=== PATIENT | male | born 1940 | race Caucasian/White ===

== ENCOUNTER → 2017-06-25 | Outpatient (CLI) | payer MEDICARE ==
[~2017-06-25] MED LIST: Aspir 8181 MG PO; Baclofen10 MG PO; GLIM2 PO; GLIM4 PO; INSDET100 SC; LEVFLO500 PO; LISI20 PO; LORA10 PO; METF500 PO; MULVITMIND PO; PANT40 PO; PIOG45 PO; RIVA1.5 PO; RIVASTIGMINE1 EAC1 TD; SERT100 PO; Ultram50 MG PO; VITAMIN B122500 MCG PO; Voltaren100 GM TP; Zofran Odt4 MG SL; [UNRECOGNIZED DRUG - OTHER]
[2017-06-25 13:03] LABS: Bilirubin, Urine Neg (Neg); Blood, Urine Neg (Neg); Glucose Qualitative, Urine Neg (Neg); Ketones, Urine Neg (Neg); Leukocyte Esterase, Urine Neg (Neg); Nitrite, Urine Neg (Neg); Protein, Urine Neg (Neg); Specific Gravity, Urine 1.005 (1.003-1.022); Urobilinogen, Urine NORM (Normal)
[2017-06-25 13:11] LABS: Appearance, Urine Clear (Clear); Color, Urine Yellow (P-Yellow)
== END | disposition home or self-care (01) ==
LOC: LAB 12:10 → LAB SHORT 12:10
PROVIDERS: Family Medicine
DX: N39.0 Urinary tract infection, site not specified (principal)
CPT/HCPCS: 81003

== ENCOUNTER → 2017-07-20 | Outpatient (CLI) | payer MEDICARE ==
[2017-07-20 14:07] LABS: Appearance, Urine Clear (Clear); Bilirubin, Urine Neg (Neg); Blood, Urine Neg (Neg); Color, Urine Yellow (P-Yellow); Glucose Qualitative, Urine Neg (Neg); Ketones, Urine Neg (Neg); Leukocyte Esterase, Urine Neg (Neg); Nitrite, Urine Neg (Neg); Protein, Urine Neg (Neg); Urobilinogen, Urine NORM (Normal)
== END ==
LOC: LAB 13:39 → LAB SHORT 13:39
PROVIDERS: Family Medicine
DX: N39.0 Urinary tract infection, site not specified (principal)
CPT/HCPCS: 81003

== ENCOUNTER 2017-08-13 09:41 | Emergency (ER) | payer MEDICARE ==
[~2017-08-13] VITALS: Ht 175.3 cm; Wt 81.7 kg
[2017-08-13] MEDS ORDERED: FURO40 PO (10:06)
[2017-08-13] MEDS ORDERED: POTCHL10ER PO (10:08)
[2017-08-13] MEDS ORDERED: SUCR1 PO (10:08)
[2017-08-13] MEDS ORDERED: POLYETHYLENE G255 GM (10:08)
[2017-08-13] MEDS ORDERED: TAMS.4ER PO (10:09)
== END 2017-08-13 10:40 | disposition home or self-care (01) ==
LOC: ER 09:41
DX: S30.0XXA Contusion of lower back and pelvis, initial encounter (principal); F03.90 Unspecified dementia, unspecified severity, without behavioral disturbance, psychotic disturbance, mood disturbance, and anxiety; E11.9 Type 2 diabetes mellitus without complications; Z79.899 Other long term (current) drug therapy; Z79.82 Long term (current) use of aspirin; Z79.4 Long term (current) use of insulin; W19.XXXA Unspecified fall, initial encounter
CPT/HCPCS: 99281

== ENCOUNTER 2017-11-11 20:15 | Emergency (ER) | payer MEDICARE ==
[~2017-11-11] VITALS: Ht 175.3 cm; Wt 81.7 kg
[~2017-11-11 20:15] MED LIST changes: +FURO40 PO; +POLYETHYLENE G255 GM; +POTCHL10ER PO; +SUCR1 PO; +TAMS.4ER PO
== END 2017-11-11 23:26 | disposition home or self-care (01) ==
LOC: ER 20:15
DX: R05 Cough (principal); F03.90 Unspecified dementia, unspecified severity, without behavioral disturbance, psychotic disturbance, mood disturbance, and anxiety; E11.9 Type 2 diabetes mellitus without complications; Z79.899 Other long term (current) drug therapy; Z79.4 Long term (current) use of insulin; Z79.82 Long term (current) use of aspirin; Z87.891 Personal history of nicotine dependence
CPT/HCPCS: 71046; 99283-25

== ENCOUNTER 2017-11-14 19:34 | Emergency (ER) | payer MEDICARE ==
[~2017-11-14] VITALS: Ht 172.7 cm; Wt 81.7 kg
[2017-11-14] MEDS ORDERED: MELO7.5 PO (20:20)
[2017-11-14] MEDS ORDERED: ACET325 PO (20:20)
[2017-11-14] MEDS ORDERED: CEFP200 PO (21:06)
== END 2017-11-14 22:05 | disposition home or self-care (01) ==
LOC: ER 19:34
DX: J18.9 Pneumonia, unspecified organism (principal); E11.9 Type 2 diabetes mellitus without complications; G20 Parkinson's disease; F02.80 Dementia in other diseases classified elsewhere, unspecified severity, without behavioral disturbance, psychotic disturbance, mood disturbance, and anxiety; K21.9 Gastro-esophageal reflux disease without esophagitis; Z79.899 Other long term (current) drug therapy; Z79.4 Long term (current) use of insulin; Z79.82 Long term (current) use of aspirin
CPT/HCPCS: 71046; 99284-25

== ENCOUNTER → 2018-04-25 | Outpatient (CLI) | payer MEDICARE ==
[~2018-04-25] MED LIST changes: +ACET325 PO; +CEFP200 PO; +MELO7.5 PO
[2018-04-26 13:05] LABS: Appearance, Urine Clear (Clear); Bilirubin, Urine Neg (Neg); Blood, Urine Neg (Neg); Color, Urine Yellow (P-Yellow); Glucose Qualitative, Urine 2+ (Neg); Ketones, Urine Neg (Neg); Leukocyte Esterase, Urine Neg (Neg); Nitrite, Urine Neg (Neg); Protein, Urine 1+ (Neg); Urobilinogen, Urine NORM (Normal); pH, Urine 6.5 (5.0-8.0)
== END | disposition home or self-care (01) ==
LOC: LAB 12:46
PROVIDERS: Family Medicine
DX: N39.0 Urinary tract infection, site not specified (principal)
CPT/HCPCS: 81003